=== PATIENT | female | born 1980 | race Caucasian/White ===

== ENCOUNTER 2017-07-13 11:40 | Emergency (ER) | payer OTHER ==
[~2017-07-13] VITALS: Ht 162.6 cm; Wt 69.0 kg
[~2017-07-13 11:40] MED LIST: THYR30 PO
[2017-07-13 11:48] VITALS: BP 169/105; PULSE 103; RESP 16; TEMP 99; O2SAT 99
[2017-07-13] MEDS ORDERED: SODIUM CHLORIDE 0.9% FLUSH 10 ML FLUSH IVF PRN (12:00)
[2017-07-13] MEDS ORDERED: ASPIRIN 81 MG CHEW TAB PO ONE (12:00)
[2017-07-13 12:28] LABS: AUTOMATED NEUTROPHIL # 5.5 TH/MM3 (1.8-7.7); BASOPHIL # 0.1 TH/MM3 (0-0.2); BASOPHIL % 1.1 % (0.0-2.0); EOSINOPHIL # 0.7 TH/MM3 (0-0.4); EOSINOPHIL % 8.6 % (0.0-4.0); HEMATOCRIT 34.4 % (35.0-46.0); HEMO FLAGS DIFF FINAL; LYMPH % 18.5 % (9.0-44.0); LYMPHOCYTE # 1.6 TH/MM3 (1.0-4.8); MEAN CELL VOLUME 83.6 FL (80.0-100.0); MEAN CORPUSCULAR HEMOGLOBIN 27.2 PG (27.0-34.0); MEAN CORPUSCULAR HGB CONC 32.5 % (32.0-36.0); MONO % 6.5 % (0.0-8.0); NEUT % 65.3 % (16.0-70.0); PLATELET COUNT 389 TH/MM3 (150-450); RED BLOOD COUNT 4.12 MIL/MM3 (4.00-5.30); RED CELL DISTRIBUTION WIDTH 13.7 % (11.6-17.2); WHITE BLOOD COUNT 8.4 TH/MM3 (4.0-11.0)
[2017-07-13 12:33] VITALS: O2SAT 98
--- NOTE | 2017-07-13 12:36 | RADRPT ---
EXAM DATE/TIME: 07/13/2017 12:08 [place] COMPARISON: No previous studies available for comparison. INDICATIONS : Left facial and arm tingling and numbness. Dizziness. TIA. RADIATION DOSE: 58.81 CTDIvol (mGy) MEDICAL HISTORY : Lupus. Hashimotos disease. SURGICAL HISTORY : Tubal ligation. ENCOUNTER: Initial ACUITY: 1 day PAIN SCALE: 0/10 LOCATION: cranial TECHNIQUE: Multiple contiguous axial images were obtained of the head. Using automated exposure control and adj ustment of the mA and/or kV according to patient size, radiation dose was kept as low as reasonably a chievable to obtain optimal diagnostic quality images. DICOM format image data is available electro nically for review and comparison. FINDINGS: CEREBRUM: The ventricles are normal for age. No evidence of midline shift, mass lesion, hemorrhage or acute in farction. No extra-axial fluid collections are seen. POSTERIOR FOSSA: The cerebellum and brainstem are intact. The 4th ventricle is midline. The cerebellopontine angle i s unremarkable. EXTRACRANIAL: The visualized portion of the orbits is intact. SKULL: The calvaria is intact. No evidence of skull fracture. CONCLUSION: No acute disease. Art Carpio MD on July 13, 2017 at 12:34 Board Certified Radiologist. This report was verified electronically.
[2017-07-13 12:38] LABS: CHLORIDE 104 MEQ/L (98-107); POTASSIUM 3.6 MEQ/L (3.5-5.1); SODIUM (NA) 139 MEQ/L (136-145)
[2017-07-13 12:42] LABS: ANION GAP 8 MEQ/L (5-15)
[2017-07-13 12:43] LABS: BLOOD UREA NITROGEN 14 MG/DL (7-18)
[2017-07-13 12:46] LABS: GLOMERULAR FILTRATION RATE 135 ML/MIN (>89)
--- NOTE | 2017-07-13 13:02 | PD ---
HPI . Numbness Chief Complaint: Neuro Symptoms/ Deficits Time Seen by Provider: 11:52 Travel History International Travel<30 days: No Contact w/Intl Traveler<30days: No Traveled to known affect area: No History of Present Illness HPI This patient presents with a chief complaint of numbness on the left side of her face and her left arm. This occurred last night. She states that just lasted for a couple seconds. She comes to us this morning because she states that her left arm is now sore. She states that she went to the pharmacy and checked her blood pressure and the pharmacist instructed her to come to the emergency department. Presumably, her blood pressure was high. She denies any chest pain or shortness of breath. There are no modifying factors regarding her left arm soreness. Pain is very minimal. PFSH Past Medical History Anemia: Yes (DURING ) Cancer: No Cardiovascular Problems: No Diabetes: No Diminished Hearing: No Endocrine: Yes (BERTRAND'S DISEASE) Gastrointestinal Disorders: No Genitourinary: No Hepatitis: No Hiatal Hernia: No Hypertension: No Immune Disorder: Yes (LUPUS) Medical other: No Musculoskeletal: No Neurologic: No Psychiatric: No Reproductive: No Respiratory: No Immunizations Current: Yes Thyroid Disease: Yes ?: Not LMP: 2 days ago Menopausal: No : 3 Para: 2 Miscarriage: 1 Past Surgical History Body Medical Devices: NONE Gynecologic Surgery: Yes (LYSIS OF ADHESIONS BY DR. CHOI -AGE 24) Other Surgery: Yes Social History Alcohol Use: No Tobacco Use: No Substance Use: No Allergies-Medications (Allergen,Severity, Reaction): Coded Allergies: benzonatate (Unverified Allergy, Severe, Rash, 07/13/17) codeine (Unverified Allergy, Severe, rash, 07/13/17) INTERMEDIATE REACTION penicillin G (Unverified Allergy, Severe, Rash, 07/13/17) INTERMEDIATE REACTION Reported Meds & Prescriptions Reported Meds & Active Scripts Active No Active Prescriptions or Reported Medications Review of Systems Except as stated in HPI: all other systems reviewed are Neg Eyes: No: Blurred Vision HENT: No: Headaches, Lightheadedness Cardiovascular: No: Chest Pain or Discomfort Respiratory: No: Shortness of Breath Musculoskeletal: Positive: Myalgias, No: Edema Physical Exam Narrative GENERAL: Awake and alert and in no acute distress. SKIN: warm/dry. Normal color. HEAD: Normocephalic. Atraumatic. EYES: Pupils equal and round. No scleral icterus. No injection or drainage. ENT: No nasal bleeding or discharge. Mucous membranes pink and moist. NECK: Trachea midline. Full range of motion without pain.. CARDIOVASCULAR: Regular rate and rhythm. Heart sounds are normal. RESPIRATORY: No accessory muscle use. Clear to auscultation. Breath sounds equal bilaterally. GASTROINTESTINAL: Abdomen soft. Nontender. Bowel sounds present. Nondistended. : Deferred. MUSCULOSKELETAL: No obvious deformities. Nontender to palpation. No joint swelling or tenderness. NEUROLOGICAL: Awake and alert. No obvious cranial nerve deficits. Motor grossly within normal limits. Normal speech. PSYCHIATRIC: Appropriate mood and affect; insight and judgment normal. Data Data Last Documented VS Vital Signs Date Time Temp Pulse Resp B/P (MAP) Pulse Ox O2 Delivery O2 Flow Rate FiO2 07/13/17 12:33 98 Room Air 07/13/17 11:48 99.0 103 16 169/105 (126) Orders Orders Basic Metabolic Panel (Bmp) (07/13/17 11:56) Complete Blood Count With Diff (07/13/17 11:56) Troponin I (07/13/17 11:56) Ecg Monitoring (07/13/17 11:56) Iv Access Insert/Monitor (07/13/17 11:56) Oximetry (07/13/17 11:56) Aspirin Chew (Aspirin Chew) (07/13/17 12:00) Sodium Chloride 0.9% Flush (Ns Flush) (07/13/17 12:00) Ct Brain W/O Iv Contrast(Rout) (07/13/17 11:56) Labs Laboratory Tests Test 07/13/17 12:24 White Blood Count 8.4 TH/MM3 Red Blood Count 4.12 MIL/MM3 Hemoglobin 11.2 GM/DL Hematocrit 34.4 % Mean Corpuscular Volume 83.6 FL Mean Corpuscular Hemoglobin 27.2 PG Mean Corpuscular Hemoglobin Concent 32.5 % Red Cell Distribution Width 13.7 % Platelet Count 389 TH/MM3 Mean Platelet Volume 8.1 FL Neutrophils (%) (Auto) 65.3 % Lymphocytes (%) (Auto) 18.5 % Monocytes (%) (Auto) 6.5 % Eosinophils (%) (Auto) 8.6 % Basophils (%) (Auto) 1.1 % Neutrophils # (Auto) 5.5 TH/MM3 Lymphocytes # (Auto) 1.6 TH/MM3 Monocytes # (Auto) 0.5 TH/MM3 Eosinophils # (Auto) 0.7 TH/MM3 Basophils # (Auto) 0.1 TH/MM3 CBC Comment DIFF FINAL Differential Comment Blood Urea Nitrogen 14 MG/DL Creatinine 0.52 MG/DL Random Glucose 95 MG/DL Calcium Level 8.5 MG/DL Sodium Level 139 MEQ/L Potassium Level 3.6 MEQ/L Chloride Level 104 MEQ/L Carbon Dioxide Level 27.0 MEQ/L Anion Gap 8 MEQ/L Estimat Glomerular Filtration Rate 135 ML/MIN Troponin I LESS THAN 0.02 NG/ML MDM Medical Decision Making Medical Screen Exam Complete: Yes Emergency Medical Condition: Yes Interpretation(s) EKG shows a normal sinus rhythm with no acute ischemic change. Differential Diagnosis Differential diagnosis of left arm pain includes but is not limited to musculoskeletal pain, pulmonary embolism, acute coronary syndrome, pneumonia, pleurisy Narrative Course Patient presents with a brief episode of left facial and left arm tingling last night. Today, her left arm is sore. Her blood pressure was reportedly elevated at a pharmacy and she was instructed to come here for further evaluation. CBC & BMP Diagram 07/13/17 12:24 Calcium Level 8.5 trop < 0.[address] 07/13/17 1156 Signed Impressions: Service Date/Time: , July 13, 2017 12:08 - CONCLUSION: No acute disease. Art Carpio MD Clinically, the patient does not have hypertensive emergency. She has no altered mental status, no chest pain, no shortness of breath, no sudden peripheral edema. Diagnosis Primary Impression: Left arm pain Additional Impression: Elevated blood pressure reading Patient Instructions: Arm Pain (ED), General Instructions Additional Instructions: Follow-up with a primary care provider regarding your elevated blood pressure Scripts No Active Prescriptions or Reported Meds Disposition: 01 DISCHARGE HOME Condition: Stable Catalina Cope MD Jul 13, 2017 13:02
[2017-07-13 13:18] VITALS: BP 148/71
--- NOTE | 2017-07-14 16:17 | EKG ---
Date Performed: 07/13/2017 Time Performed: 11:49:50 PTAGE: 36 years EKG: Sinus rhythm POSSIBLE LEFT ATRIAL ENLARGEMENT Since previous tracing, no significant change noted BORDERLINE ECG PREVIOUS TRACING : 03/10/2012 01.22 DOCTOR: Valeri Hennessy Interpretating Date/Time 07/14/2017 16:16:41
== END 2017-07-13 13:23 | disposition home or self-care (01) ==
LOC: PHED 11:40
DX: M79.602 Pain in left arm (principal); R03.0 Elevated blood-pressure reading, without diagnosis of hypertension
CPT/HCPCS: 70450; 80048; 84484; 85025; 93005; 99284